=== PATIENT | female | born 1960 | race Caucasian/White ===

== ENCOUNTER 2019-09-04 02:10 | Outpatient (CLI) | payer OTHER, SELFPAY ==
--- NOTE | 2019-09-04 | DI.RAD_ITS ---
EXAM: XR CHEST 2V PA LATERAL CLINICAL HISTORY: PAIN AFTER INJURY OF THORACIC BACK WITH POSSIBLE RIB INVOLVEMENT TECHNIQUE: 2D digital imaging was performed. COMPARISON: No exams were available for comparison FINDINGS: MEDIASTINUM: Normal. HEART: Normal. PULMONARY VASCULATURE: Normal. LUNGS: Clear. PLEURAL SPACE: No pleural effusion or pneumothorax. BONE:Midthoracic scoliosis. Mild degenerative disc changes in the thoracic spine. No compression fr acture is seen. No displaced rib fracture is visible. OTHER FINDINGS:Normal. IMPRESSION: No acute abnormality. DATA REPOSITORY: RADIATION DOSE DELIVERED:
--- NOTE | 2019-09-04 | DI.RAD_ITS ---
EXAM: XR THORACIC SPINE COMPLETE CLINICAL HISTORY: PAIN AFTER INJURY OF THORACIC BACK WITH POSSIBLE RIB INVOLVEMENT. TECHNIQUE: 2D digital imaging was performed. COMPARISON: No exams were available for comparison FINDINGS: A [id number] dextroscoliosis is seen. There are endplate osteophytes and mild disc space narro wing anteriorly. The osteophytes are more prominent toward the right. There is no evidence of compr ession fracture. The visualized portions of the ribs appear intact. IMPRESSION: Scoliosis and degenerative changes. No acute abnormality. DATA REPOSITORY: RADIATION DOSE DELIVERED:
== END 2019-09-04 02:30 ==
PROVIDERS: PCP Naturopath; Visit Provider Naturopath
DX: M41.9 Scoliosis, unspecified (principal); S39.92XA Unspecified injury of lower back, initial encounter
CPT/HCPCS: 71046; 72072